=== PATIENT | male | born 1985 | race Caucasian/White ===

== ENCOUNTER → 2022-10-12 06:40 | Outpatient (CLI) | payer OTHER, SELFPAY ==
--- NOTE | 2022-10-12 | DI.US.S_ITS ---
PROCEDURE: US ABDOMEN COMPLETE INDICATIONS: DUODENITIS WITH BLEEDING. TECHNIQUE: Real-time scanning was performed of the abdominal and retroperitoneal organs, with image documentation. COMPARISON: None. FINDINGS: Liver: Liver is normal in size and homogeneous in echotexture. Gallbladder: The gallbladder appears normal without gallstones or gallbladder wall thickening. There is no pericholecystic fluid. Sonographic Hill sign is negative. Biliary ducts: Intrahepatic bile ducts are non-dilated. Extrahepatic bile duct caliber measures 1 mm. Normal is 6-7 mm or less in diameter, or 10 mm or less post-cholecystectomy. Pancreas: Visualized portions of the pancreas are sonographically normal. Spleen: Spleen is normal in size and homogeneous in echotexture. Kidneys: Kidneys are normal in size and echotexture. Right kidney measures 10.7 cm long; left kidney measures 10.9 cm long. No hydronephrosis or nephrolithiasis. No solid masses. Aorta: Visualized aorta is normal in caliber at less than 3 cm. Iliacs: Proximal common iliac arteries are normal in caliber at less than 2.5 cm. IVC: Intrahepatic inferior vena cava is patent. Miscellaneous: No free abdominal fluid. IMPRESSION: Abdominal ultrasound is within normal limits. Approved by: Marty Cole M.D. on 10/12/2022 at 14:47
== END ==
PROVIDERS: PCP Internal Medicine; Referring Provider Internal Medicine; Visit Provider Internal Medicine
DX: K29.81 Duodenitis with bleeding (principal)
CPT/HCPCS: 76700

== ENCOUNTER 2023-02-25 19:38 | Emergency (ER) | payer OTHER, SELFPAY ==
--- NOTE | 2023-02-25 19:39 | ED.GENADULT ---
HPI - General Adult General Chief complaint: Extremity Injury, Lower Stated complaint: rt ankle injury Time Seen by Provider: 02/25/23 19:39 History of Present Illness HPI narrative: 38-year-old male nonsmoker with noncontributory medical history presents for evaluation of right ankle pain. He was in his normal state of health and out for a trail run tonight when he stepped awkwardly on uneven ground and inverted his right ankle and felt immediate pain. He has increased pain with ambulation and improvement with rest. He denies any numbness, tingling or weakness. He has worsening pain on palpation and some swelling over his lateral ankle. Denies any knee or hip pain. Related Data Allergies Allergy/AdvReac Type Severity Reaction Status Date / Time No Known Drug Allergies Allergy Verified 02/25/23 19:47 Review of Systems Review of Systems Narrative: GENERAL: Denies chills, fatigue, malaise, fever, sweats. HEENT: Denies sinus pain, ear pain, sore throat, difficulty swallowing, dizziness. RESPIRATORY: Denies dyspnea, cough, wheezing, hemoptysis, sputum. CARDIOVASCULAR: Denies chest pain, palpitations, orthopnea, edema, GASTROINTESTINAL: Denies nausea, vomiting, abdominal pain, diarrhea, constipation, melena. : Denies dysuria, frequency, incontinence, hematuria, urinary retention. MUSCULOSKELETAL: See HPI SKIN: Denies rash, skin lesions, or other NEUROLOGIC: Denies weakness, headache, numbness, change in speech, confusion, seizures, incoordination. PSYCHIATRIC: No concerning psychosocial issues. 12 point review of systems is negative except for those stated above Patient History Social History Smoking Status: Never smoker Exam Narrative Exam Narrative: GEN: AOx3 and in mild distress EYES: Pupils are equal, round, and reactive to light and accommodation. Extraoccular muscles are intact bilaterally. There is no subconjunctival hemorrhage or exudate. CHEST: Lungs are clear to auscultation bilaterally and free of wheezes, rales, or rhonchi. Heart rate is regular rhythm, there are no murmurs, clicks, rubs, or gallops. There is no chest wall tenderness. ABD: Abdomen is soft and nontender. There is no guarding or rebound. Bowel sounds are normal in all 4 quadrants. There is no mass or organomegaly. EXT: full but painful range of motion of right ankle without obvious ligamentous instability or deformity, there is some swelling overlying the lateral malleolus in the distribution of the anterior talofibular ligament. No pain in knee, negative squeeze test. This is closed, isolated and neurovascularly intact SKIN: Warm, pink, and dry. No erythema or rash Initial Vital Signs Initial Vital Signs: Vital Signs Temperature 97.9 F 02/25/23 19:47 Pulse Rate 75 02/25/23 19:47 Respiratory Rate 15 02/25/23 19:47 Blood Pressure 122/83 02/25/23 19:47 Pulse Oximetry 96 02/25/23 19:47 Oxygen Delivery Method Room Air 02/25/23 19:47 Course Orders Ordered: ED Orders 02/25/23 19:50 XR ankle RT min 3V Stat Vital Signs Vital signs: Vital Signs - 8 hr 02/25/23 19:47 02/25/23 21:30 Temperature 97.9 F Pulse Rate 75 70 Respiratory Rate 15 18 Blood Pressure 122/83 129/82 Pulse Oximetry 96 100 Oxygen Delivery Method Room Air Room Air Medical Decision Making [facility] Narrative Medical decision making narrative: [ 38] year old patient presents with right ankle pain after inversion injury Multiple etiologies for patient's symptoms considered including, but not limited to: [ sprain versus fracture versus dislocation versus high ankle injury versus Achilles versus other] Prior Charts reviewed in our EMR Primary Historian: patient Imaging reviewed: ankle x-ray demonstrates no evidence of fracture or dislocation patient with reassuring history and physical exam most consistent with an inversion injury. No deformity, injury is closed, isolated and neurovascularly intact, imaging demonstrates no fracture or dislocation Patient's symptoms improved over duration of stay with above-stated therapies. Findings and discharge diagnosis discussed with patient/family followed by verbalization of understanding Return precautions discussed with patient/family whom verbalize understanding of diagnosis and plan Discharge Plan Departure Patient Disposition: Home Clinical Impression: Ankle sprain and strain Activity Restrictions/Additional Instructions: *You have been diagnosed with [right ankle sprain. As we discussed your history and physical exam are reassuring in the x-ray shows no evidence of fracture or dislocation.] *What to do: *Please continue to take your regular medications as directed. [ ] New medication prescriptions sent to your pharmacy: [ ] [ ] New medication written as a paper prescription [ ] No new medications given *Please follow up with your primary care provider in 2-3 days, call for an appointment. Let them know you were seen in the Emergency Department and that we ask that you be seen in follow up. We will electronically transmit a record of today's note if your PCP is in our system *If you do not have a primary care provider please contact the [facility] Resource line at [phone]. They will ask some questions about your medical history and help get you set up with a doctor in the community. *Return to Emergency Department if you should have any new, worsening or concerning symptoms, such as [fever greater than 101 F, shaking chills, worsening pain, persistent vomiting or other bothersome symptoms] Referrals: Surjit Mondragon MD [Primary Care Provider] - Stand Alone Forms: Patient Portal/API
[2023-02-25 19:47] VITALS: BP 122/83; PULSE 75; RESP 15; TEMP 36.6; O2SAT 96; BMI 28.8
--- NOTE | 2023-02-25 19:50 | DI.RAD.S_ITS ---
PROCEDURE: XR ANKLE RT MIN 3V INDICATIONS: twisted ankle with swelling and pain TECHNIQUE: 3 views of the ankle were acquired. COMPARISON: None. FINDINGS: Bones: No fractures or dislocations. Ankle mortise is normally aligned. No suspicious bony lesions. Soft tissues: A tibiotalar joint effusion is present. Lateral soft tissue swelling. IMPRESSION: No acute fracture identified. A tibiotalar joint effusion is present. If symptoms persist, follow-up radiographs and/or CT or MRI may be helpful for further evaluation. Dictated by: Marty Fernando M.D. on 02/25/2023 at 20:27 Approved by: Marty Fernando M.D. on 02/25/2023 at 20:30
[2023-02-25 21:30] VITALS: BP 129/82; PULSE 70; RESP 18; O2SAT 100
== END 2023-02-25 21:31 | disposition home or self-care (01) ==
PROVIDERS: Emergency Provider Emergency Medicine; PCP Internal Medicine
DX: S93.401A Sprain of unspecified ligament of right ankle, initial encounter (principal); S96.911A Strain of unspecified muscle and tendon at ankle and foot level, right foot, initial encounter; X50.1XXA Overexertion from prolonged static or awkward postures, initial encounter
CPT/HCPCS: 73610; 99283